=== PATIENT | male | born 1960 | race Hispanic/Latino ===

== ENCOUNTER 2019-10-18 14:00 | Outpatient (RCR) | payer BC | END 2019-10-20 | LOC: PT 14:00 | PROVIDERS: ATTEND Specialist | DX: M13.852 Other specified arthritis, left hip (principal); M13.862 Other specified arthritis, left knee; S39.012A Strain of muscle, fascia and tendon of lower back, initial encounter ==

== ENCOUNTER 2019-10-25 07:00 | Outpatient (RCR) | payer BC | END 2019-11-19 | LOC: PT 07:00 | PROVIDERS: ATTEND Specialist | DX: M16.12 Unilateral primary osteoarthritis, left hip (principal); M17.12 Unilateral primary osteoarthritis, left knee; S39.012A Strain of muscle, fascia and tendon of lower back, initial encounter ==